=== PATIENT | male | born 1985 | race Caucasian/White ===

== ENCOUNTER 2016-04-02 15:37 | Emergency (ER) | payer MEDICAID, OTHER ==
[~2016-04-02] VITALS: Ht 188 cm; Wt 65.9 kg
[2016-04-02 15:41] VITALS: BP 122/80; PULSE 76; RESP 18; O2SAT 100
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
[2016-04-02 16:19] VITALS: BP 122/80; PULSE 76; RESP 18; O2SAT 100
== END 2016-04-02 16:28 | disposition home or self-care (01) ==
LOC: SED 15:37
DX: S00.83XA Contusion of other part of head, initial encounter (principal); S00.33XA Contusion of nose, initial encounter; S40.012A Contusion of left shoulder, initial encounter; Y04.0XXA Assault by unarmed brawl or fight, initial encounter; Y93.89 Activity, other specified; Y92.009 Unspecified place in unspecified non-institutional (private) residence as the place of occurrence of the external cause; Y99.8 Other external cause status